=== PATIENT | male | born 1935 | race African-American/Black ===

== ENCOUNTER 2021-12-31 09:09 | Inpatient (IN) | payer OTHER ==
[2021-12-31] VITALS (53 sets, daily range): BP systolic 53–194; BP diastolic 25–122
[~2021-12-31] VITALS: Ht 188 cm; Wt 68.3 kg
[2021-12-31] MEDS ORDERED: SODIUM CHLORIDE 0.9% 1000ML BAG (SEPSIS BOLUS) IV ONE (09:45)
[2021-12-31] MEDS ORDERED: VANCOMYCIN 1G PREMIX 200 ML IV ONE (09:45)
[2021-12-31] MEDS ORDERED: PIPERACILLIN/TAZ 3.375G PREMIX 50 ML IV ONE (09:45)
[2021-12-31 10:08] LABS: HEMATOCRIT. 30.2 % (42.0-52.0); HEMOGLOBIN. 9.4 g/dL (14.0-18.0); MEAN CORPUSCULAR HEMOGLOBIN 22.4 pg (28.0-32.0); MEAN CORPUSCULAR VOLUME 72.1 fL (80.0-94.0); RED BLOOD CELL COUNT 4.19 mill/uL (4.7-6.1); RED CELL DISTRIBUTION WIDTH 30.8 % (11.6-14.6)
[2021-12-31 10:13] LABS: CHLORIDE 102 mEq/L (98-107)
[2021-12-31 10:25] LABS: CREATINE KINASE 99 IU/L (39-308)
[2021-12-31 10:38] LABS: PLATELET ESTIMATE DECREASED
[2021-12-31 10:40] LABS: MEAN PLATELET VOLUME 10.2 fl (7.4-10.4)
[2021-12-31 10:41] LABS: PLATELET 99 x1000/uL (130-400)
[2021-12-31] MEDS ORDERED: NOREPINEPHRINE 8MG/250ML PMX 250 ML IV ONE (11:15)
[2021-12-31 11:33] LABS: INR 1.9; PROTHROMBIN TIME 19.7 sec (9.6-11.0)
[2021-12-31 14:48] LABS: BG BASE EXCESS -10.1 mmol/L (-2.0-2.0); BG CARBOXYHEMOGLOBIN 1.3 % (0.5-1.5); BG DEOXYHEMOGLOBIN 0.3 % (0.0-5.0); BG HCO3 ACT 16.4 mmol/L (22.0-26.0); BG METHEMOGLOBIN 0.6 % (0.0-1.5); BG OXYGEN SATURATION 99.7 % (92.0-98.5); BG OXYHEMOGLOBIN 97.8 % (94.0-97.0); BG PCO2 38.6 mmHg (35.0-45.0); BG PH 7.247 (7.350-7.450); BG PO2 370.9 mmHg (75.0-100.0); BG TOTAL HEMOGLOBIN 10.2 g/dL (12.0-18.0)
[2021-12-31 15:21] LABS: CLARITY URINE CLOUDY (CLEAR); COLOR URINE BLOODY (YELLOW); PH URINE 7.5 (4.5-8.0); PROTEIN URINE 3+ (NEGATIVE)
[2021-12-31 15:22] LABS: KETONES URINE NEGATIVE (NEGATIVE); LEUKOCYTE ESTERASE URINE 2+ (NEGATIVE); NITRITE URINE NEGATIVE (NEGATIVE); OCCULT BLOOD URINE 3+ (NEGATIVE); UROBILINOGEN URINE 0.2 E.U./dL (0.2-1.0)
[2021-12-31] MEDS: NOREPINEPHRINE 32 MG in DEXT 5% WATER 218 ML IV PRN ×2 (16:25→23:55)
[2021-12-31] MEDS: DEXT 5%/0.9% NACL 1,000 ML IV SCH (16:33)
[2021-12-31] MEDS ORDERED: VANCOMYCIN 500MG PREMIX 100 ML IV NR (17:00)
[2021-12-31 17:18] LABS: SODIUM URINE RANDOM 147 mEq/L
[2021-12-31 17:22] LABS: FERRITIN 54 ng/mL (22-322)
[2021-12-31 17:23] LABS: CREATININE URINE RANDOM < 10.0 mg/dL
[2021-12-31 17:24] LABS: TOTAL IRON BINDING CAPACITY 210 ug/dL (250-450)
[2021-12-31 17:48] LABS: VITAMIN B12 SERUM > 2000.0 pg/mL (211-911)
[2021-12-31] MEDS: PHENYLEPHRINE 100 MG in DEXT 5% WATER 240 ML IV PRN (18:29)
[2021-12-31] MEDS ORDERED: PIPERACILLIN/TAZOBACTAM 3.375 G in DEXTROSE 5% WATER 50 ML IV SCH (21:00)
[2021-12-31] MEDS ORDERED: DIPHENHYDRAMINE 50MG/ML VIAL IV PRN (22:00)
[2021-12-31] MEDS ORDERED: ACETAMINOPHEN 650MG SUPP PR PRN ×2 (22:00)
[2021-12-31] MEDS ORDERED: MEROPENEM 500 MG in SODIUM CHLORIDE 0.9% 50 ML IV SCH (23:30)
[2022-01-01] VITALS (13 sets, daily range): BP systolic 55–134; BP diastolic 32–72
[2022-01-01] MEDS: DEXT 5%/0.9% NACL 1,000 ML IV SCH (01:58)
[2022-01-01] MEDS: PHENYLEPHRINE 100 MG in DEXT 5% WATER 240 ML IV PRN (02:49)
[2022-01-01 04:11] LABS: HEMOGLOBIN. 10.8 g/dL (14.0-18.0); MEAN CORPUSCULAR HEMOGLOBIN 22.8 pg (28.0-32.0); MEAN CORPUSCULAR VOLUME 77.9 fL (80.0-94.0); RED BLOOD CELL COUNT 4.75 mill/uL (4.7-6.1); RED CELL DISTRIBUTION WIDTH 32.1 % (11.6-14.6)
[2022-01-01 04:15] LABS: CHLORIDE 103 mEq/L (98-107)
[2022-01-01 04:22] LABS: PHOSPHORUS 6.9 mg/dL (2.5-4.9)
[2022-01-01 08:52] LABS: NUCLEATED RED BLOOD CELLS 3 /100 WBC
[2022-01-01 08:55] LABS: PLATELET 102 x1000/uL (130-400); PLATELET ESTIMATE DECREASED
[2022-01-01] MEDS ORDERED: PANTOPRAZOLE SODIUM 40 MG/VIAL IV SCH ×2 (09:00)
== END 2022-01-01 05:37 | DRG 871 ==
LOC: ER 09:09 → MICUNO 12:49 → EDBD 12:49 → EDBEDREQSVC 12:53 → EDBEDREQ 12:53 → EDBEDREQTM 12:53
PROVIDERS: ADMIT Internal Medicine; ATTEND Internal Medicine
PROC: 5A1935Z Respiratory Ventilation, Less than 24 Consecutive Hours (ICD-10-PCS; 2021-12-31)
PROC: 0BH17EZ Insertion of Endotracheal Airway into Trachea, Via Natural or Artificial Opening (ICD-10-PCS; 2021-12-31)
PROC: 5A12012 Performance of Cardiac Output, Single, Manual (ICD-10-PCS; principal; 2022-01-01)
DX: A41.9 Sepsis, unspecified organism (principal); J96.01 Acute respiratory failure with hypoxia; R65.21 Severe sepsis with septic shock; N39.0 Urinary tract infection, site not specified; G93.40 Encephalopathy, unspecified; D68.9 Coagulation defect, unspecified; N17.9 Acute kidney failure, unspecified; E87.20 Acidosis, unspecified; E46 Unspecified protein-calorie malnutrition; Z68.1 Body mass index [BMI] 19.9 or less, adult; I13.0 Hypertensive heart and chronic kidney disease with heart failure and stage 1 through stage 4 chronic kidney disease, or unspecified chronic kidney disease; I82.622 Acute embolism and thrombosis of deep veins of left upper extremity; I46.9 Cardiac arrest, cause unspecified; I50.9 Heart failure, unspecified; I95.9 Hypotension, unspecified; I27.20 Pulmonary hypertension, unspecified; K21.9 Gastro-esophageal reflux disease without esophagitis; N40.1 Benign prostatic hyperplasia with lower urinary tract symptoms; D69.6 Thrombocytopenia, unspecified; I25.10 Atherosclerotic heart disease of native coronary artery without angina pectoris; E78.5 Hyperlipidemia, unspecified; D50.9 Iron deficiency anemia, unspecified; R74.01 Elevation of levels of liver transaminase levels; N18.9 Chronic kidney disease, unspecified; E88.09 Other disorders of plasma-protein metabolism, not elsewhere classified; I49.5 Sick sinus syndrome; E87.5 Hyperkalemia; D63.1 Anemia in chronic kidney disease; F12.90 Cannabis use, unspecified, uncomplicated; F10.90 Alcohol use, unspecified, uncomplicated; Z86.73 Personal history of transient ischemic attack (TIA), and cerebral infarction without residual deficits; Z82.41 Family history of sudden cardiac death; Z86.718 Personal history of other venous thrombosis and embolism; Z95.0 Presence of cardiac pacemaker; Z95.2 Presence of prosthetic heart valve
CPT/HCPCS: 36415; 36600; 71045; 76700; 80053; 81003; 82375; 82550; 82570; 82607; 82728; 82746; 82805; 82962; 83540; 83550; 83605; 83735; 83880; 84100; 84145; 84300; 84484; 85025; 87070; 93005; 93306; 93970; 93971; 99291; J2185; J2370; J2543; J3370; J3490; J7030; J7042; J7060